=== PATIENT | male | born 1985 | race Caucasian/White ===

== ENCOUNTER 2021-04-07 03:29 | Inpatient (IN) | payer MEDICAID, SELFPAY ==
[~2021-04-07] VITALS: Ht 180.3 cm; Wt 143.8 kg
[2021-04-07 03:30] VITALS: BP_SYST 128
[2021-04-07 04:55] LABS: BILIRUBIN,URINE NEGATIVE (NEGATIVE); BLOOD, URINE 3+ (NEGATIVE); CLARITY/URINE CLOUDY (CLEAR); COLOR,URINE RED (YELLOW); GLUCOSE,URINE NEGATIVE (NEGATIVE); KETONES,URINE 1+ (NEGATIVE); LEUKOCYTE ESTERASE ,URINE TRACE (NEGATIVE); NITRITE, URINE NEGATIVE (NEGATIVE); PH,URINE 6.5 (5.0-8.0); PROTEIN URINE 3+ (NEGATIVE)
[2021-04-07 05:32] LABS: BACTERIA,URINE FEW /HPF (None Seen); RBC,URINE >100 /HPF (0-3)
[2021-04-07 05:36] LABS: BASOPHILS # (AUTO) 0.1 K/uL (0.0-0.2); BASOPHILS % (AUTO) 1.2 % (0.0-2.0); EOSINOPHILS # (AUTO) 0.1 K/uL (0.0-0.4); EOSINOPHILS % (AUTO) 0.8 % (0.0-4.0); HEMATOCRIT 46.9 % (36-54); HEMOGLOBIN 16.2 g/dL (14.0-18.0); LYMPHOCYTES # (AUTO) 1.1 K/uL (1.0-5.5); LYMPHOCYTES % (AUTO) 9.2 % (20.5-51.5); MEAN CORPUSCULAR HEMOGLOBIN 30 pg (27-31); MEAN CORPUSCULAR HGB CONC 35 % (32-36); MEAN CORPUSCULAR VOLUME 87 fL (79.0-98.0); MONOCYTES # (AUTO) 0.5 K/uL (0.0-1.0); MONOCYTES % (AUTO) 4.6 % (1.7-9.3); NEUTROPHILS # (AUTO) 9.7 K/uL (1.8-7.7); NEUTROPHILS % (AUTO) 84.2 % (40.0-70.0); PLATELET COUNT (AUTO) 191 K/uL (130-430); RED BLOOD CELL COUNT(AUTO) 5.41 MIL/uL (4.2-6.2); RED CELL DISTRIBUTION WIDTH 13.2 % (9.0-15.0); WHITE BLOOD COUNT (AUTO) 11.6 K/uL (4.8-10.8)
[2021-04-07 05:39] LABS: CALCIUM 8.3 mg/dL (8.4-11.0); CREATININE 0.79 mg/dL (0.55-1.30); POTASSIUM 3.6 mmol/L (3.5-5.1)
[2021-04-07 05:42] LABS: PROTHROMBIN TIME 10.2 SECS (9.5-12.5)
[2021-04-07 05:44] LABS: ALBUMIN 3.8 g/dL (3.4-4.8); TOTAL BILIRUBIN 0.3 mg/dL (0.0-1.0)
[2021-04-07] MEDS ORDERED: cefTRIAXone 2 GM VIAL IM ONE (06:15)
[2021-04-07] MEDS ORDERED: cefTRIAXone 2 GM VIAL ONE (06:48)
[2021-04-07] MEDS ORDERED: NACL 0.9% 1,000 ML IV ONE (07:00)
[2021-04-07] MEDS ORDERED: ASPI-1047 PO (09:37)
[2021-04-07] MEDS ORDERED: [UNRECOGNIZED DRUG - CODE] PO (09:37)
[2021-04-07 14:23] VITALS: BP_SYST 112
[2021-04-07 14:34] VITALS: BP_SYST 112
[2021-04-07] MEDS ORDERED: ASPIRIN 81 MG TABLET(ECOTRIN) PO ONE (17:30)
[2021-04-07] MEDS: DIMETHYL FUMARATE 240 MG PO SCH (20:23)
[2021-04-07] MEDS ORDERED: DIMETHYL FUMARATE PO SCH (21:00)
[2021-04-07 22:44] VITALS: BP_SYST 105
[2021-04-08 05:21] VITALS: BP_SYST 109
[2021-04-08 06:57] LABS: BASOPHILS % (AUTO) 0.5 % (0.0-2.0); EOSINOPHILS # (AUTO) 0.1 K/uL (0.0-0.4); EOSINOPHILS % (AUTO) 1.4 % (0.0-4.0); HEMOGLOBIN 15.5 g/dL (14.0-18.0); LYMPHOCYTES # (AUTO) 1.6 K/uL (1.0-5.5); LYMPHOCYTES % (AUTO) 19.1 % (20.5-51.5); MEAN CORPUSCULAR HEMOGLOBIN 30 pg (27-31); MEAN CORPUSCULAR HGB CONC 35 % (32-36); MEAN CORPUSCULAR VOLUME 87 fL (79.0-98.0); MONOCYTES # (AUTO) 0.8 K/uL (0.0-1.0); MONOCYTES % (AUTO) 9.2 % (1.7-9.3); NEUTROPHILS # (AUTO) 5.9 K/uL (1.8-7.7); NEUTROPHILS % (AUTO) 69.8 % (40.0-70.0); PLATELET COUNT (AUTO) 181 K/uL (130-430); RED BLOOD CELL COUNT(AUTO) 5.15 MIL/uL (4.2-6.2); RED CELL DISTRIBUTION WIDTH 13.1 % (9.0-15.0); WHITE BLOOD COUNT (AUTO) 8.4 K/uL (4.8-10.8)
[2021-04-08 07:15] LABS: ALBUMIN 3.4 g/dL (3.4-4.8); CALCIUM 8.8 mg/dL (8.4-11.0); CREATININE 0.75 mg/dL (0.55-1.30); POTASSIUM 3.9 mmol/L (3.5-5.1); TOTAL BILIRUBIN 0.9 mg/dL (0.0-1.0)
[2021-04-08 08:59] LABS: ERYTHROCYTE SEDIMENTATION RATE 3 MM/HR (0-15)
[2021-04-08 09:03] LABS: C-REACTIVE PROTEIN QUANT 1.6 mg/dL (0-0.5)
[2021-04-08] MEDS: DIMETHYL FUMARATE 240 MG PO SCH ×2 (09:35→20:45)
[2021-04-08] MEDS: ASPIRIN 81 MG TABLET(ECOTRIN) PO SCH ×2 (09:35→20:45)
[2021-04-08 11:25] VITALS: BP_SYST 120
[2021-04-08] MEDS: LEVOFLOXACIN IN DEXTROSE 5 % 100 ML IV SCH (12:00)
[2021-04-08 15:28] VITALS: BP_SYST 106
[2021-04-09 00:51] VITALS: BP_SYST 130
[2021-04-09 08:00] VITALS: BP_SYST 131
[2021-04-09] MEDS: DIMETHYL FUMARATE 240 MG PO SCH ×2 (08:51→21:04)
[2021-04-09] MEDS: ASPIRIN 81 MG TABLET(ECOTRIN) PO SCH ×2 (08:51→21:03)
[2021-04-09 09:06] LABS: BASOPHILS % (AUTO) 0.5 % (0.0-2.0); EOSINOPHILS # (AUTO) 0.1 K/uL (0.0-0.4); EOSINOPHILS % (AUTO) 1.6 % (0.0-4.0); HEMATOCRIT 49.6 % (36-54); HEMOGLOBIN 17.2 g/dL (14.0-18.0); LYMPHOCYTES # (AUTO) 1.9 K/uL (1.0-5.5); LYMPHOCYTES % (AUTO) 22.9 % (20.5-51.5); MEAN CORPUSCULAR HEMOGLOBIN 30 pg (27-31); MEAN CORPUSCULAR HGB CONC 35 % (32-36); MEAN CORPUSCULAR VOLUME 88 fL (79.0-98.0); MONOCYTES # (AUTO) 0.7 K/uL (0.0-1.0); MONOCYTES % (AUTO) 7.9 % (1.7-9.3); NEUTROPHILS # (AUTO) 5.5 K/uL (1.8-7.7); NEUTROPHILS % (AUTO) 67.1 % (40.0-70.0); PLATELET COUNT (AUTO) 179 K/uL (130-430); RED BLOOD CELL COUNT(AUTO) 5.65 MIL/uL (4.2-6.2); WHITE BLOOD COUNT (AUTO) 8.3 K/uL (4.8-10.8)
[2021-04-09 09:22] LABS: CALCIUM 9.2 mg/dL (8.4-11.0); CREATININE 0.79 mg/dL (0.55-1.30)
[2021-04-09 09:53] LABS: C-REACTIVE PROTEIN QUANT 2.9 mg/dL (0-0.5)
[2021-04-09 10:34] LABS: ERYTHROCYTE SEDIMENTATION RATE 8 MM/HR (0-15)
[2021-04-09] MEDS: LEVOFLOXACIN IN DEXTROSE 5 % 100 ML IV SCH (11:29)
[2021-04-09 11:30] VITALS: BP_SYST 131
[2021-04-09 15:32] VITALS: BP_SYST 114
[2021-04-09 20:00] VITALS: BP_SYST 121
[2021-04-10] VITALS: BP_SYST 127
[2021-04-10 07:56] VITALS: BP_SYST 127
[2021-04-10] MEDS: DIMETHYL FUMARATE 240 MG PO SCH ×2 (08:28→21:06)
[2021-04-10] MEDS: ASPIRIN 81 MG TABLET(ECOTRIN) PO SCH ×2 (08:28→21:06)
[2021-04-10 11:05] LABS: BASOPHILS % (AUTO) 0.4 % (0.0-2.0); EOSINOPHILS # (AUTO) 0.2 K/uL (0.0-0.4); EOSINOPHILS % (AUTO) 2.8 % (0.0-4.0); HEMATOCRIT 48.9 % (36-54); HEMOGLOBIN 16.9 g/dL (14.0-18.0); LYMPHOCYTES # (AUTO) 1.2 K/uL (1.0-5.5); LYMPHOCYTES % (AUTO) 18.8 % (20.5-51.5); MEAN CORPUSCULAR HEMOGLOBIN 30 pg (27-31); MEAN CORPUSCULAR HGB CONC 35 % (32-36); MEAN CORPUSCULAR VOLUME 87 fL (79.0-98.0); MONOCYTES # (AUTO) 0.4 K/uL (0.0-1.0); MONOCYTES % (AUTO) 6.9 % (1.7-9.3); NEUTROPHILS # (AUTO) 4.4 K/uL (1.8-7.7); NEUTROPHILS % (AUTO) 71.1 % (40.0-70.0); PLATELET COUNT (AUTO) 198 K/uL (130-430); RED BLOOD CELL COUNT(AUTO) 5.61 MIL/uL (4.2-6.2); RED CELL DISTRIBUTION WIDTH 13.1 % (9.0-15.0); WHITE BLOOD COUNT (AUTO) 6.2 K/uL (4.8-10.8)
[2021-04-10 11:14] LABS: ALBUMIN 3.8 g/dL (3.4-4.8); C-REACTIVE PROTEIN QUANT 1.7 mg/dL (0-0.5); CALCIUM 8.8 mg/dL (8.4-11.0); CREATININE 0.81 mg/dL (0.55-1.30); TOTAL BILIRUBIN 0.4 mg/dL (0.0-1.0)
[2021-04-10] MEDS: LEVOFLOXACIN IN DEXTROSE 5 % 100 ML IV SCH (11:15)
[2021-04-10 11:27] VITALS: BP_SYST 115
[2021-04-10] MEDS ORDERED: CIPR500T5 PO (13:08)
[2021-04-10 13:56] LABS: ERYTHROCYTE SEDIMENTATION RATE 11 MM/HR (0-15)
[2021-04-10 15:37] VITALS: BP_SYST 115
[2021-04-10 20:00] VITALS: BP_SYST 131
[2021-04-11 01:31] VITALS: BP_SYST 103
[2021-04-11 04:00] VITALS: BP_SYST 131
[2021-04-11 07:48] LABS: BASOPHILS % (AUTO) 0.7 % (0.0-2.0); EOSINOPHILS # (AUTO) 0.2 K/uL (0.0-0.4); EOSINOPHILS % (AUTO) 3.5 % (0.0-4.0); HEMATOCRIT 45.3 % (36-54); HEMOGLOBIN 15.7 g/dL (14.0-18.0); LYMPHOCYTES # (AUTO) 1.6 K/uL (1.0-5.5); LYMPHOCYTES % (AUTO) 26.1 % (20.5-51.5); MEAN CORPUSCULAR HEMOGLOBIN 30 pg (27-31); MEAN CORPUSCULAR HGB CONC 35 % (32-36); MEAN CORPUSCULAR VOLUME 87 fL (79.0-98.0); MONOCYTES # (AUTO) 0.5 K/uL (0.0-1.0); NEUTROPHILS # (AUTO) 3.6 K/uL (1.8-7.7); NEUTROPHILS % (AUTO) 60.7 % (40.0-70.0); PLATELET COUNT (AUTO) 177 K/uL (130-430); RED BLOOD CELL COUNT(AUTO) 5.19 MIL/uL (4.2-6.2); RED CELL DISTRIBUTION WIDTH 12.9 % (9.0-15.0)
[2021-04-11 08:01] VITALS: BP_SYST 104
[2021-04-11] MEDS: ASPIRIN 81 MG TABLET(ECOTRIN) PO SCH ×2 (09:20→21:32)
[2021-04-11] MEDS: DIMETHYL FUMARATE 240 MG PO SCH ×2 (09:21→21:32)
[2021-04-11 09:48] LABS: CALCIUM 8.8 mg/dL (8.4-11.0); CREATININE 0.77 mg/dL (0.55-1.30); POTASSIUM 3.9 mmol/L (3.5-5.1)
[2021-04-11 10:57] LABS: C-REACTIVE PROTEIN QUANT 0.7 mg/dL (0-0.5)
[2021-04-11] MEDS ORDERED: ENOXAPARIN SODIUM 40 MG/0.4 ML SYRINGE SUBCUT ONE (11:45)
[2021-04-11] MEDS: LEVOFLOXACIN IN DEXTROSE 5 % 100 ML IV SCH (11:46)
[2021-04-11 12:00] VITALS: BP_SYST 115
[2021-04-11 12:58] LABS: ERYTHROCYTE SEDIMENTATION RATE 8 MM/HR (0-15)
[2021-04-11 16:34] VITALS: BP_SYST 106
[2021-04-11 20:30] VITALS: BP_SYST 119
[2021-04-12 00:07] VITALS: BP_SYST 110
[2021-04-12 07:00] LABS: BASOPHILS % (AUTO) 0.8 % (0.0-2.0); EOSINOPHILS # (AUTO) 0.2 K/uL (0.0-0.4); EOSINOPHILS % (AUTO) 2.7 % (0.0-4.0); HEMATOCRIT 47.3 % (36-54); HEMOGLOBIN 16.2 g/dL (14.0-18.0); LYMPHOCYTES # (AUTO) 1.3 K/uL (1.0-5.5); LYMPHOCYTES % (AUTO) 23.6 % (20.5-51.5); MEAN CORPUSCULAR HEMOGLOBIN 30 pg (27-31); MEAN CORPUSCULAR HGB CONC 34 % (32-36); MEAN CORPUSCULAR VOLUME 88 fL (79.0-98.0); MONOCYTES # (AUTO) 0.4 K/uL (0.0-1.0); MONOCYTES % (AUTO) 7.6 % (1.7-9.3); NEUTROPHILS # (AUTO) 3.6 K/uL (1.8-7.7); NEUTROPHILS % (AUTO) 65.3 % (40.0-70.0); PLATELET COUNT (AUTO) 204 K/uL (130-430); RED BLOOD CELL COUNT(AUTO) 5.36 MIL/uL (4.2-6.2); RED CELL DISTRIBUTION WIDTH 13.1 % (9.0-15.0); WHITE BLOOD COUNT (AUTO) 5.6 K/uL (4.8-10.8)
[2021-04-12 07:22] LABS: CALCIUM 9.1 mg/dL (8.4-11.0); CREATININE 0.75 mg/dL (0.55-1.30); POTASSIUM 3.7 mmol/L (3.5-5.1)
[2021-04-12 08:00] VITALS: BP_SYST 106
[2021-04-12] MEDS: ASPIRIN 81 MG TABLET(ECOTRIN) PO SCH ×2 (08:44→21:39)
[2021-04-12] MEDS: DIMETHYL FUMARATE 240 MG PO SCH ×2 (08:44→21:40)
[2021-04-12] MEDS: ENOXAPARIN SODIUM 40 MG/0.4 ML SYRINGE SUBCUT SCH (08:49)
[2021-04-12 08:50] LABS: C-REACTIVE PROTEIN QUANT 0.6 mg/dL (0-0.5)
[2021-04-12] MEDS: LEVOFLOXACIN IN DEXTROSE 5 % 100 ML IV SCH (11:55)
[2021-04-12 12:13] LABS: ERYTHROCYTE SEDIMENTATION RATE 12 MM/HR (0-15)
[2021-04-12 12:29] VITALS: BP_SYST 136
[2021-04-12 16:26] VITALS: BP_SYST 109
[2021-04-12 21:00] VITALS: BP_SYST 114
[2021-04-13 00:30] VITALS: BP_SYST 106
[2021-04-13 06:44] LABS: BASOPHILS # (AUTO) 0.1 K/uL (0.0-0.2); BASOPHILS % (AUTO) 0.9 % (0.0-2.0); EOSINOPHILS # (AUTO) 0.2 K/uL (0.0-0.4); EOSINOPHILS % (AUTO) 3.2 % (0.0-4.0); HEMATOCRIT 47.1 % (36-54); HEMOGLOBIN 16.5 g/dL (14.0-18.0); LYMPHOCYTES # (AUTO) 1.7 K/uL (1.0-5.5); LYMPHOCYTES % (AUTO) 27.1 % (20.5-51.5); MEAN CORPUSCULAR HEMOGLOBIN 30 pg (27-31); MEAN CORPUSCULAR HGB CONC 35 % (32-36); MEAN CORPUSCULAR VOLUME 87 fL (79.0-98.0); MONOCYTES # (AUTO) 0.6 K/uL (0.0-1.0); MONOCYTES % (AUTO) 9.3 % (1.7-9.3); NEUTROPHILS # (AUTO) 3.6 K/uL (1.8-7.7); NEUTROPHILS % (AUTO) 59.5 % (40.0-70.0); PLATELET COUNT (AUTO) 190 K/uL (130-430); RED BLOOD CELL COUNT(AUTO) 5.43 MIL/uL (4.2-6.2); RED CELL DISTRIBUTION WIDTH 13.2 % (9.0-15.0); WHITE BLOOD COUNT (AUTO) 6.1 K/uL (4.8-10.8)
[2021-04-13 07:35] LABS: ALANINE AMINOTRANSFERASE 65 U/L (12-78); ALBUMIN 3.7 g/dL (3.4-4.8); ANION GAP 10 (5-15); ASPARTATE AMINOTRANSFERASE 17 U/L (10-37); CHLORIDE 104 mmol/L (98-107); CREATININE 0.73 mg/dL (0.55-1.30); GLUCOSE 93 mg/dL (70-99); POTASSIUM 3.8 mmol/L (3.5-5.1); SODIUM SERUM 140 mmol/L (136-145); TOTAL BILIRUBIN 0.7 mg/dL (0.0-1.0); UREA NITROGEN, BLOOD 14 mg/dL (8-21)
[2021-04-13] MEDS: ASPIRIN 81 MG TABLET(ECOTRIN) PO SCH ×2 (08:15→21:52)
[2021-04-13] MEDS: DIMETHYL FUMARATE 240 MG PO SCH ×2 (08:16→21:52)
[2021-04-13] MEDS: ENOXAPARIN SODIUM 40 MG/0.4 ML SYRINGE SUBCUT SCH (08:18)
[2021-04-13 08:28] VITALS: BP_SYST 112
[2021-04-13 09:06] LABS: GFR AFRICAN AMERICAN 156 mL/min (>90)
[2021-04-13 09:52] LABS: C-REACTIVE PROTEIN QUANT < 0.2 mg/dL (0-0.5)
[2021-04-13 10:56] LABS: ERYTHROCYTE SEDIMENTATION RATE 8 MM/HR (0-15)
[2021-04-13 11:27] VITALS: BP_SYST 114
[2021-04-13] MEDS: LEVOFLOXACIN IN DEXTROSE 5 % 100 ML IV SCH (11:41)
[2021-04-13 15:24] VITALS: BP_SYST 131
[2021-04-14 00:41] VITALS: BP_SYST 100
[2021-04-14 04:00] VITALS: BP_SYST 116
[2021-04-14 06:06] LABS: ANION GAP 9 (5-15); C-REACTIVE PROTEIN QUANT < 0.2 mg/dL (0-0.5); CALCIUM 8.2 mg/dL (8.4-11.0); CHLORIDE 103 mmol/L (98-107); CREATININE 0.81 mg/dL (0.55-1.30); GLUCOSE 98 mg/dL (70-99); SODIUM SERUM 137 mmol/L (136-145); UREA NITROGEN, BLOOD 15 mg/dL (8-21)
[2021-04-14 06:12] LABS: BASOPHILS # (AUTO) 0.1 K/uL (0.0-0.2); BASOPHILS % (AUTO) 0.9 % (0.0-2.0); EOSINOPHILS # (AUTO) 0.2 K/uL (0.0-0.4); EOSINOPHILS % (AUTO) 2.9 % (0.0-4.0); HEMATOCRIT 44.8 % (36-54); HEMOGLOBIN 15.6 g/dL (14.0-18.0); LYMPHOCYTES # (AUTO) 1.6 K/uL (1.0-5.5); LYMPHOCYTES % (AUTO) 24.5 % (20.5-51.5); MEAN CORPUSCULAR HEMOGLOBIN 30 pg (27-31); MEAN CORPUSCULAR HGB CONC 35 % (32-36); MEAN CORPUSCULAR VOLUME 87 fL (79.0-98.0); MONOCYTES # (AUTO) 0.6 K/uL (0.0-1.0); MONOCYTES % (AUTO) 9.7 % (1.7-9.3); NEUTROPHILS # (AUTO) 4.1 K/uL (1.8-7.7); PLATELET COUNT (AUTO) 184 K/uL (130-430); RED BLOOD CELL COUNT(AUTO) 5.17 MIL/uL (4.2-6.2); RED CELL DISTRIBUTION WIDTH 12.9 % (9.0-15.0); WHITE BLOOD COUNT (AUTO) 6.5 K/uL (4.8-10.8)
[2021-04-14 07:23] LABS: GFR AFRICAN AMERICAN 139 mL/min (>90)
[2021-04-14 08:00] VITALS: BP_SYST 105
[2021-04-14] MEDS: DIMETHYL FUMARATE 240 MG PO SCH ×2 (09:09→22:02)
[2021-04-14] MEDS: ENOXAPARIN SODIUM 40 MG/0.4 ML SYRINGE SUBCUT SCH (09:09)
[2021-04-14] MEDS: ASPIRIN 81 MG TABLET(ECOTRIN) PO SCH ×2 (09:09→22:01)
[2021-04-14 09:37] LABS: ERYTHROCYTE SEDIMENTATION RATE 9 MM/HR (0-15)
[2021-04-14 11:36] VITALS: BP_SYST 121
[2021-04-14] MEDS: LEVOFLOXACIN IN DEXTROSE 5 % 100 ML IV SCH (11:40)
[2021-04-14 15:30] VITALS: BP_SYST 120
[2021-04-15] VITALS (7 sets, daily range): BP systolic 105–112
[2021-04-15 06:31] LABS: BASOPHILS # (AUTO) 0.1 K/uL (0.0-0.2); BASOPHILS % (AUTO) 0.9 % (0.0-2.0); EOSINOPHILS # (AUTO) 0.2 K/uL (0.0-0.4); EOSINOPHILS % (AUTO) 2.7 % (0.0-4.0); HEMATOCRIT 44.8 % (36-54); HEMOGLOBIN 15.6 g/dL (14.0-18.0); LYMPHOCYTES # (AUTO) 1.6 K/uL (1.0-5.5); MEAN CORPUSCULAR HEMOGLOBIN 31 pg (27-31); MEAN CORPUSCULAR HGB CONC 35 % (32-36); MEAN CORPUSCULAR VOLUME 88 fL (79.0-98.0); MONOCYTES # (AUTO) 0.7 K/uL (0.0-1.0); MONOCYTES % (AUTO) 9.8 % (1.7-9.3); NEUTROPHILS # (AUTO) 4.2 K/uL (1.8-7.7); NEUTROPHILS % (AUTO) 62.6 % (40.0-70.0); PLATELET COUNT (AUTO) 206 K/uL (130-430); RED BLOOD CELL COUNT(AUTO) 5.08 MIL/uL (4.2-6.2); RED CELL DISTRIBUTION WIDTH 13.1 % (9.0-15.0); WHITE BLOOD COUNT (AUTO) 6.7 K/uL (4.8-10.8)
[2021-04-15 06:54] LABS: ALBUMIN 3.6 g/dL (3.4-4.8); CREATININE 0.84 mg/dL (0.55-1.30); POTASSIUM 4.2 mmol/L (3.5-5.1); TOTAL BILIRUBIN 0.4 mg/dL (0.0-1.0)
[2021-04-15] MEDS: DIMETHYL FUMARATE 240 MG PO SCH ×2 (08:54→21:00)
[2021-04-15] MEDS: ENOXAPARIN SODIUM 40 MG/0.4 ML SYRINGE SUBCUT SCH (08:54)
[2021-04-15] MEDS: ASPIRIN 81 MG TABLET(ECOTRIN) PO SCH ×2 (08:54→20:15)
[2021-04-16 01:07] VITALS: BP_SYST 108
[2021-04-16 08:00] VITALS: BP_SYST 112
[2021-04-16] MEDS: ASPIRIN 81 MG TABLET(ECOTRIN) PO SCH (08:23)
[2021-04-16] MEDS: ENOXAPARIN SODIUM 40 MG/0.4 ML SYRINGE SUBCUT SCH (08:23)
[2021-04-16] MEDS: DIMETHYL FUMARATE 240 MG PO SCH (08:23)
== END 2021-04-16 09:50 | disposition home health service (06) | DRG 720 ==
LOC: SED 03:29 → SMU 09:48
PROVIDERS: ADMIT Preventive Medicine Preventive Medicine/Occupational Environmental Medicine; ATTEND Preventive Medicine Preventive Medicine/Occupational Environmental Medicine
DX: A41.9 Sepsis, unspecified organism (principal); E87.1 Hypo-osmolality and hyponatremia; E83.52 Hypercalcemia; N39.0 Urinary tract infection, site not specified; Z68.41 Body mass index [BMI] 40.0-44.9, adult; R31.0 Gross hematuria; Z20.822 Contact with and (suspected) exposure to COVID-19; G35 Multiple sclerosis; B96.4 Proteus (mirabilis) (morganii) as the cause of diseases classified elsewhere; E66.01 Morbid (severe) obesity due to excess calories; R73.9 Hyperglycemia, unspecified; K80.20 Calculus of gallbladder without cholecystitis without obstruction; R53.81 Other malaise; Z88.0 Allergy status to penicillin; Z79.899 Other long term (current) drug therapy; Z79.82 Long term (current) use of aspirin; Z79.01 Long term (current) use of anticoagulants; Z87.440 Personal history of urinary (tract) infections; Z90.49 Acquired absence of other specified parts of digestive tract
CPT/HCPCS: 36415; 76376; 80048; 80053; 81000; 85025; 85610-TC; 85651-TC; 86140; 87086; 96365; 97110-GP; 97530-GP; 99285; J0696; J1650; J1956